=== PATIENT | female | born 1995 | race Caucasian/White ===

== ENCOUNTER 2016-09-09 17:15 | Emergency (ER) | payer OTHER ==
[2016-09-09] MEDS ORDERED: LIDOCAINE VISCOUS 2% SOLN 15ML UDC As Ordered ONE (19:22)
[2016-09-09] MEDS ORDERED: diphenhydrAMINE 25 MG CAP As Ordered ONE (19:23)
--- NOTE | 2016-09-09 19:33 | EDDOCDS ---
Nurse's Notes [facility] Name: Che Christianson Age: 21 yrs Sex: Female : 1995 Arrival Date: 09/09/2016 Time: 17:15 Bed Triage 2 Private MD: Chapis Diagnosis: Diseases of tongue-sore(s);Viral infection, unspecified Presentation: 09/09 17:19 Presenting complaint: Patient states: Patient reports that she has a swollen tongue. [facility] Patient reports being seen at urgent care today. Patient reports no diagnosis given, tongue is painful. Presenting complaint: Patient states: Patient reports started three days ago. Patient denies change in meds or lifestyle changes. Patient reports that she presents due to it not going away. Adult Sepsis Screening: The patient does not have new or worsening altered mentation. Patient's respiratory rate is less than 22. Systolic blood pressure is greater than 100. Patient has a qSOFA score of 0- Negative Sepsis Screen. Suicide/Homicide risk assessment- the patient denies having any suicidal and/or homicidal ideations and does not present with any other emotional, behavioral or mental health complaints. Status: Patient is not a elevator service technician or dependent. Transition of care: patient was not received from another setting of care. 17:19 Method Of Arrival: Walkin/Carried/Asstd [facility] 17:19 Acuity: EMELYN Level 4 [facility] Triage Assessment: 17:22 General: Appears in no apparent distress. Pain: Location: mouth Pain currently is 7 out jmb of 10 on a pain scale. Pt Declines HIV testing. Neurological: Level of Consciousness is awake, alert, obeys commands, Oriented to person, place, time, Speech is slurred, Facial symmetry appears normal, Facial symmetry: tongue is midline. EENT: . Respiratory: Airway is patent Respiratory effort is even, unlabored, Respiratory pattern is regular, symmetrical. Derm: Skin is pink, warm & dry. Musculoskeletal: Range of motion intact in all extremities. CONTACT CENTER REPRESENTATIVE: 17:22 LMP 08/22/2016 [facility] Historical: - Allergies: No known drug Allergies; - Home Meds: 1. levothyroxine 50 mcg Oral cap 1 cap once daily - PMHx: Hypothyroidism; - PSHx: Cholecystectomy; - Social history: Smoking status: Patient states was never smoker of tobacco. No barriers to communication noted, The patient speaks fluent Ugandan, Speaks appropriately for age. - Family history: Not pertinent. - : The pt / caregiver states he / she is not on anticoagulants. Home medication list is obtained from the patient. - Exposure Risk Screening:: None identified. Screenin:31 Screening information is obtained from the patient. Fall risk: No risks identified. ms18 Assistance ADL's: requires no assistance with activities of daily living. Abuse/DV Screen: The patient / caregiver reports he/she is: not in a situation that causes fear, pain or injury. Nutritional screening: No deficits noted. Advance Directives: There is no living will. Advance Directives:. home support is adequate. Assessment: 19:31 General: Appears in no apparent distress, comfortable, obese, Behavior is appropriate ms18 for age, cooperative. Pain: Denies pain. Neurological: Level of Consciousness is awake, alert, obeys commands, Oriented to person, place, time. EENT: Reports tongue swelling. Respiratory: Airway is patent Respiratory effort is even, unlabored. Derm: Skin is pink, warm & dry. Vital Signs: 17:17 BP 128 / 62; Pulse 87; Resp 18 S; Temp 98.0(O); Pulse Ox 98% on R/A; Weight 99.79 kg dd6 (R); Height 5 ft. 2 in. (157.48 cm) (R); 19:30 BP 132 / 65 LA Sitting (auto/lg); Pulse 74; Resp 16; Temp 98.8(TE); Pulse Ox 98% on rs6 R/A; Pain 7/10; 17:17 Body Mass Index 40.24 (99.79 kg, 157.48 cm) dd6 Vitals: 17:17 Log In Time: September 09, 2016 at 17:15. dd6 ED Course: 17:17 Patient visited by Fernando Langley PCA. dd6 17:17 Chapis is Private Physician. dd6 17:17 Patient moved to Waiting dd6 17:18 Patient moved to Pre RCE dd6 17:21 Triage Initiated jmb 19:00 Patient moved to Triage 2 mlb1 19:07 Aurelio Cabrera PA is PHCP. mo1 19:07 Elliott Delgado DO is Attending Physician. mo1 19:09 Patient visited by Aurelio Cabrera PA. mo1 19:24 Chapis is Referral Physician. mo1 19:31 Patient visited by Pat Desai PCA. rs6 19:31 No apparent distress. ms18 19:31 The patient / caregiver is instructed regarding the plan of care and ED course. ms18 Accompanied by Family Member, Patient has correct armband on for positive identification. Property sent home with patient. :Personal belongings accompany Pt. 19:31 No IV's were initiated during this patient's visit. No procedures done that require ms18 assistance. Administered Medications: 19:28 Drug: Lidocaine Viscous 15 ml [Lidocaine Viscous 2 % mucosal solution (15 mL)] Route: jmb Mucous Membrane; Site: affected area; 19:28 Drug: diphenhydrAMINE 50 mg [diphenhydramine 25 mg capsule (2 caps)] Route: PO; jmb Order Results: There are currently no results for this order. Outcome: 19:24 Discharge ordered by Provider. mo1 19:31 Discharge Assessment: Patient awake, alert and oriented x 3. No cognitive and/or ms18 functional deficits noted. Patient verbalized understanding of disposition instructions. patient administered narcotics - no. The following High Risk Discharge criteria are identified: None. Discharged to home ambulatory. Condition: good Condition: stable Condition: improved. Discharge instructions given to patient, Instructed on discharge instructions, follow up and referral plans. medication usage, Demonstrated understanding of instructions, medications, Pt was receptive of discharge instructions/ teaching. Prescriptions given X 1. No special radiology studies were completed. 19:32 Patient left the ED. ms18 Signatures: Aurelio Parra RN RN mlb1 Fernando Langley, CHICKEN STUFFER CHICKEN STUFFER dd6 Aurelio Cabrera PA PA mo1 Naren Vaz RN RN Adilia Stubbs RN RN ms18 Pat Desai, CHICKEN STUFFER CHICKEN STUFFER rs6 Corrections: (The following items were deleted from the chart) 17:24 17:19 Acuity: EMELYN Level 3 alexa liu MTDD
--- NOTE | 2016-09-09 19:33 | EDDOCDS ---
Physician Documentation [facility] Name: Che Christianson Age: 21 yrs Sex: Female : 1995 Arrival Date: 09/09/2016 Time: 17:15 Bed Triage 2 Private MD: Chapis Disposition: 09/09/16 19:24 Discharged to Home/Self Care. Impression: Diseases of tongue - sore(s), Viral infection, unspecified. - Condition is Stable. - Discharge Instructions: Hand, Foot, and Mouth Disease, Viral Exanthems, Adult. - Prescriptions for Lidocaine Viscous - take 10 milliliter by BUCCAL route every 8 hours; 200 milliliter. - Medication Reconciliation, Local Pharmacy Hours form. - Follow up: Chapis; When: Call to arrange an appointment; Reason: Recheck today's complaints, Continuance of care. - Problem is new. - Symptoms are unchanged. - Notes: continue with warm salt water rinses, cold/ice to reduce swelling of tongue, benadryl or other antihistamine to help with swelling. Historical: - Allergies: No known drug Allergies; - Home Meds: 1. levothyroxine 50 mcg Oral cap 1 cap once daily - PMHx: Hypothyroidism; - PSHx: Cholecystectomy; - Social history: Smoking status: Patient states was never smoker of tobacco. No barriers to communication noted, The patient speaks fluent Greek, Speaks appropriately for age. - Family history: Not pertinent. - : The pt / caregiver states he / she is not on anticoagulants. Home medication list is obtained from the patient. - Exposure Risk Screening:: None identified. UX RESEARCH ASSOCIATE: 09/09 17:22 LMP 08/22/2016 b Vital Signs: 17:17 BP 128 / 62; Pulse 87; Resp 18 S; Temp 98.0(O); Pulse Ox 98% on R/A; Weight 99.79 kg / dd6 220 lbs (R); Height 5 ft. 2 in. (157.48 cm) (R); 19:30 BP 132 / 65 LA Sitting (auto/lg); Pulse 74; Resp 16; Temp 98.8(TE); Pulse Ox 98% on rs6 R/A; Pain 7/10; 17:17 Body Mass Index 40.24 (99.79 kg, 157.48 cm) dd6 MDM: 19:20 Lidocaine Viscous Liquid 2 % 15 ml Mucous Membrane in affected area once ordered. mo1 19:20 diphenhydrAMINE 50 mg PO once; pt drove to Er, give to go home please ordered. mo1 Administered Medications: 19:28 Drug: Lidocaine Viscous 15 ml [Lidocaine Viscous 2 % mucosal solution (15 mL)] Route: jmb Mucous Membrane; Site: affected area; 19:28 Drug: diphenhydrAMINE 50 mg [diphenhydramine 25 mg capsule (2 caps)] Route: PO; jmb Signatures: Aurelio Cabrera PA PA mo1 Naren VazRN RN jmb Adilia Quispe RN RN ms18 MTDD
--- NOTE | 2016-09-11 20:33 | EDDOCDS ---
Nurse's Notes [facility] Name: Che Christianson Age: 21 yrs Sex: Female : 1995 Arrival Date: 09/09/2016 Time: 17:15 Bed Triage 2 Private MD: Chapis Diagnosis: Diseases of tongue-sore(s);Viral infection, unspecified Presentation: 09/09 17:19 Presenting complaint: Patient states: Patient reports that she has a swollen tongue. [facility] Patient reports being seen at urgent care today. Patient reports no diagnosis given, tongue is painful. Presenting complaint: Patient states: Patient reports started three days ago. Patient denies change in meds or lifestyle changes. Patient reports that she presents due to it not going away. Adult Sepsis Screening: The patient does not have new or worsening altered mentation. Patient's respiratory rate is less than 22. Systolic blood pressure is greater than 100. Patient has a qSOFA score of 0- Negative Sepsis Screen. Suicide/Homicide risk assessment- the patient denies having any suicidal and/or homicidal ideations and does not present with any other emotional, behavioral or mental health complaints. Status: Patient is not a service order dispatcher or dependent. Transition of care: patient was not received from another setting of care. 17:19 Method Of Arrival: Walkin/Carried/Asstd [facility] 17:19 Acuity: EMELYN Level 4 [facility] Triage Assessment: 17:22 General: Appears in no apparent distress. Pain: Location: mouth Pain currently is 7 out jmb of 10 on a pain scale. Pt Declines HIV testing. Neurological: Level of Consciousness is awake, alert, obeys commands, Oriented to person, place, time, Speech is slurred, Facial symmetry appears normal, Facial symmetry: tongue is midline. EENT: . Respiratory: Airway is patent Respiratory effort is even, unlabored, Respiratory pattern is regular, symmetrical. Derm: Skin is pink, warm & dry. Musculoskeletal: Range of motion intact in all extremities. ORDER PICKER: 17:22 LMP 08/22/2016 [facility] Historical: - Allergies: No known drug Allergies; - Home Meds: 1. levothyroxine 50 mcg Oral cap 1 cap once daily - PMHx: Hypothyroidism; - PSHx: Cholecystectomy; - Social history: Smoking status: Patient states was never smoker of tobacco. No barriers to communication noted, The patient speaks fluent Burundian, Speaks appropriately for age. - Family history: Not pertinent. - : The pt / caregiver states he / she is not on anticoagulants. Home medication list is obtained from the patient. - Exposure Risk Screening:: None identified. Screenin:31 Screening information is obtained from the patient. Fall risk: No risks identified. ms18 Assistance ADL's: requires no assistance with activities of daily living. Abuse/DV Screen: The patient / caregiver reports he/she is: not in a situation that causes fear, pain or injury. Nutritional screening: No deficits noted. Advance Directives: There is no living will. Advance Directives:. home support is adequate. Assessment: 19:31 General: Appears in no apparent distress, comfortable, obese, Behavior is appropriate ms18 for age, cooperative. Pain: Denies pain. Neurological: Level of Consciousness is awake, alert, obeys commands, Oriented to person, place, time. EENT: Reports tongue swelling. Respiratory: Airway is patent Respiratory effort is even, unlabored. Derm: Skin is pink, warm & dry. Vital Signs: 17:17 BP 128 / 62; Pulse 87; Resp 18 S; Temp 98.0(O); Pulse Ox 98% on R/A; Weight 99.79 kg dd6 (R); Height 5 ft. 2 in. (157.48 cm) (R); 19:30 BP 132 / 65 LA Sitting (auto/lg); Pulse 74; Resp 16; Temp 98.8(TE); Pulse Ox 98% on rs6 R/A; Pain 7/10; 17:17 Body Mass Index 40.24 (99.79 kg, 157.48 cm) dd6 Vitals: 17:17 Log In Time: September 09, 2016 at 17:15. dd6 ED Course: 17:17 Patient visited by Fernando Langley PCA. dd6 17:17 Chapis is Private Physician. dd6 17:17 Patient moved to Waiting dd6 17:18 Patient moved to Pre RCE dd6 17:21 Triage Initiated jmb 19:00 Patient moved to Triage 2 mlb1 19:07 Aurelio Cabrera PA is PHCP. mo1 19:07 Elliott Delgado DO is Attending Physician. mo1 19:09 Patient visited by Aurelio Cabrera PA. mo1 19:24 Chapis is Referral Physician. mo1 19:31 Patient visited by Pat Desai, CEFERINO. rs6 19:31 No apparent distress. ms18 19:31 The patient / caregiver is instructed regarding the plan of care and ED course. ms18 Accompanied by Family Member, Patient has correct armband on for positive identification. Property sent home with patient. :Personal belongings accompany Pt. 19:31 No IV's were initiated during this patient's visit. No procedures done that require ms18 assistance. 19:40 [facility] Payment Agreement was scanned into [employer] and attached to record. [email or web address] 09/10 08:54 T-Sheet-- Draft Copy was scanned into [employer] and attached to record. [facility] Administered Medications: 09/09 19:28 Drug: Lidocaine Viscous 15 ml [Lidocaine Viscous 2 % mucosal solution (15 mL)] Route: jmb Mucous Membrane; Site: affected area; 19:28 Drug: diphenhydrAMINE 50 mg [diphenhydramine 25 mg capsule (2 caps)] Route: PO; jmb Order Results: There are currently no results for this order. Outcome: 19:24 Discharge ordered by Provider. mo1 19:31 Discharge Assessment: Patient awake, alert and oriented x 3. No cognitive and/or ms18 functional deficits noted. Patient verbalized understanding of disposition instructions. patient administered narcotics - no. The following High Risk Discharge criteria are identified: None. Discharged to home ambulatory. Condition: good Condition: stable Condition: improved. Discharge instructions given to patient, Instructed on discharge instructions, follow up and referral plans. medication usage, Demonstrated understanding of instructions, medications, Pt was receptive of discharge instructions/ teaching. Prescriptions given X 1. No special radiology studies were completed. 19:32 Patient left the ED. ms18 Signatures: Aurelio Parra RN RN mlb1 Fernando Langley, BUSINESS OPERATIONS DIRECTOR BUSINESS OPERATIONS DIRECTOR dd6 Aurelio Cabrera PA PA mo1 Naren Vaz RN RN Adilia Stubbs RN RN ms18 Pat Desai, BUSINESS OPERATIONS DIRECTOR BUSINESS OPERATIONS DIRECTOR rs6 Miguel AMar, Reg Reg ks16 Alejandra Linares [facility] Corrections: (The following items were deleted from the chart) 17:24 17:19 Acuity: EMELYN Level 3 jmb jmb Chart Complete MTDD
--- NOTE | 2016-09-11 20:33 | EDDOCDS ---
Physician Documentation [facility] Name: Che Christianson Age: 21 yrs Sex: Female : 1995 Arrival Date: 09/09/2016 Time: 17:15 Bed Triage 2 Private MD: Chapis Disposition: 09/09/16 19:24 Discharged to Home/Self Care. Impression: Diseases of tongue - sore(s), Viral infection, unspecified. - Condition is Stable. - Discharge Instructions: Hand, Foot, and Mouth Disease, Viral Exanthems, Adult. - Prescriptions for Lidocaine Viscous - take 10 milliliter by BUCCAL route every 8 hours; 200 milliliter. - Medication Reconciliation, Local Pharmacy Hours form. - Follow up: Chapis; When: Call to arrange an appointment; Reason: Recheck today's complaints, Continuance of care. - Problem is new. - Symptoms are unchanged. - Notes: continue with warm salt water rinses, cold/ice to reduce swelling of tongue, benadryl or other antihistamine to help with swelling. Historical: - Allergies: No known drug Allergies; - Home Meds: 1. levothyroxine 50 mcg Oral cap 1 cap once daily - PMHx: Hypothyroidism; - PSHx: Cholecystectomy; - Social history: Smoking status: Patient states was never smoker of tobacco. No barriers to communication noted, The patient speaks fluent Somali, Speaks appropriately for age. - Family history: Not pertinent. - : The pt / caregiver states he / she is not on anticoagulants. Home medication list is obtained from the patient. - Exposure Risk Screening:: None identified. RN TRANSITIONAL: 09/09 17:22 LMP 08/22/2016 b Vital Signs: 17:17 BP 128 / 62; Pulse 87; Resp 18 S; Temp 98.0(O); Pulse Ox 98% on R/A; Weight 99.79 kg / dd6 220 lbs (R); Height 5 ft. 2 in. (157.48 cm) (R); 19:30 BP 132 / 65 LA Sitting (auto/lg); Pulse 74; Resp 16; Temp 98.8(TE); Pulse Ox 98% on rs6 R/A; Pain 7/10; 17:17 Body Mass Index 40.24 (99.79 kg, 157.48 cm) dd6 MDM: 19:20 Lidocaine Viscous Liquid 2 % 15 ml Mucous Membrane in affected area once ordered. mo1 19:20 diphenhydrAMINE 50 mg PO once; pt drove to [place], give to go home please ordered. mo1 19:40 Financial registration complete. [email or web address] 19:40 [facility] Payment Agreement was scanned into [employer] and attached to record. ks09/10 08:54 T-Sheet-- Draft Copy was scanned into [employer] and attached to record. seh Administered Medications: 09/09 19:28 Drug: Lidocaine Viscous 15 ml [Lidocaine Viscous 2 % mucosal solution (15 mL)] Route: jmb Mucous Membrane; Site: affected area; 19:28 Drug: diphenhydrAMINE 50 mg [diphenhydramine 25 mg capsule (2 caps)] Route: PO; jmb Signatures: Aureilo Cabrera PA PA mo1 Naren Vaz RN RN jmb Smith, Mallory, RN RN ms18 Mar Grady, Reg Reg ks16 Alejandra Linares The chart was reviewed and I authenticate all verbal orders and agree with the evaluation and treatment provided.Attachments: 19:40 [facility] Payment Agreement [email or web address] 09/10 08:54 T-Sheet-- Draft Copy [facility] Chart Complete MTDD
--- NOTE | 2016-09-11 20:33 | EDDOCDS ---
Physician Documentation [facility] Name: Che Christianson Age: 21 yrs Sex: Female : 1995 Arrival Date: 09/09/2016 Time: 17:15 Bed Triage 2 Private MD: Chapis Disposition: 09/09/16 19:24 Discharged to Home/Self Care. Impression: Diseases of tongue - sore(s), Viral infection, unspecified. - Condition is Stable. - Discharge Instructions: Hand, Foot, and Mouth Disease, Viral Exanthems, Adult. - Prescriptions for Lidocaine Viscous - take 10 milliliter by BUCCAL route every 8 hours; 200 milliliter. - Medication Reconciliation, Local Pharmacy Hours form. - Follow up: Chapis; When: Call to arrange an appointment; Reason: Recheck today's complaints, Continuance of care. - Problem is new. - Symptoms are unchanged. - Notes: continue with warm salt water rinses, cold/ice to reduce swelling of tongue, benadryl or other antihistamine to help with swelling. Historical: - Allergies: No known drug Allergies; - Home Meds: 1. levothyroxine 50 mcg Oral cap 1 cap once daily - PMHx: Hypothyroidism; - PSHx: Cholecystectomy; - Social history: Smoking status: Patient states was never smoker of tobacco. No barriers to communication noted, The patient speaks fluent Congolese, Speaks appropriately for age. - Family history: Not pertinent. - : The pt / caregiver states he / she is not on anticoagulants. Home medication list is obtained from the patient. - Exposure Risk Screening:: None identified. PATROL SUPERVISOR: 09/09 17:22 LMP 08/22/2016 b Vital Signs: 17:17 BP 128 / 62; Pulse 87; Resp 18 S; Temp 98.0(O); Pulse Ox 98% on R/A; Weight 99.79 kg / dd6 220 lbs (R); Height 5 ft. 2 in. (157.48 cm) (R); 19:30 BP 132 / 65 LA Sitting (auto/lg); Pulse 74; Resp 16; Temp 98.8(TE); Pulse Ox 98% on rs6 R/A; Pain 7/10; 17:17 Body Mass Index 40.24 (99.79 kg, 157.48 cm) dd6 MDM: 19:20 Lidocaine Viscous Liquid 2 % 15 ml Mucous Membrane in affected area once ordered. mo1 19:20 diphenhydrAMINE 50 mg PO once; pt drove to Er, give to go home please ordered. mo1 19:40 Financial registration complete. [email or web address] 19:40 [facility] Payment Agreement was scanned into [employer] and attached to record. ks09/10 08:54 T-Sheet-- Draft Copy was scanned into [employer] and attached to record. seh Administered Medications: 09/09 19:28 Drug: Lidocaine Viscous 15 ml [Lidocaine Viscous 2 % mucosal solution (15 mL)] Route: jmb Mucous Membrane; Site: affected area; 19:28 Drug: diphenhydrAMINE 50 mg [diphenhydramine 25 mg capsule (2 caps)] Route: PO; jmb Signatures: Aurelio Cabrera PA PA mo1 Naren Vaz RN RN jmb Smith, Mallory, RN RN ms18 Mar Grady, Reg Reg ks16 Alejandra Linares The chart was reviewed and I authenticate all verbal orders and agree with the evaluation and treatment provided.Attachments: 19:40 [facility] Payment Agreement [email or web address] 09/10 08:54 T-Sheet-- Draft Copy [facility] Chart Complete MTDD
== END 2016-09-09 19:32 | disposition home or self-care (01) ==
LOC: M ED 17:15
DX: B08.4 Enteroviral vesicular stomatitis with exanthem (principal); B34.9 Viral infection, unspecified; E03.9 Hypothyroidism, unspecified; Z90.49 Acquired absence of other specified parts of digestive tract; Z79.899 Other long term (current) drug therapy

== ENCOUNTER → 2016-10-08 | Outpatient (CLI) | payer OTHER ==
[2016-10-08 19:11] LABS: FREE T4 1.18 NG/DL (0.76-1.46)
== END | disposition home or self-care (01) ==
LOC: M LRY 12:22
PROVIDERS: ATTEND Physician Assistant
DX: E03.8 Other specified hypothyroidism (principal); R73.01 Impaired fasting glucose; E55.9 Vitamin D deficiency, unspecified
CPT/HCPCS: 36415; 82306; 83036; 84439; 84443; G0463

== ENCOUNTER 2017-01-16 23:34 | Emergency (ER) | payer OTHER ==
[~2017-01-16] VITALS: Ht 157.5 cm; Wt 108.9 kg
[2017-01-16] MEDS ORDERED: LEVO25TA5 PO (23:54)
[2017-01-16] MEDS ORDERED: BYDU1INJ SC (23:54)
[2017-01-17 02:54] VITALS: BP 126/68
== END 2017-01-17 02:58 | disposition home or self-care (01) ==
LOC: M ED 01-17 00:58
DX: S10.91XA Abrasion of unspecified part of neck, initial encounter (principal); Y04.8XXA Assault by other bodily force, initial encounter; Y92.129 Unspecified place in nursing home as the place of occurrence of the external cause; Y93.89 Activity, other specified; Y99.0 Civilian activity done for income or pay; Z79.899 Other long term (current) drug therapy

== ENCOUNTER → 2017-04-20 | Outpatient (CLI) | payer OTHER ==
[~2017-04-20] MED LIST: BYDU1INJ SC; LEVO25TA5 PO
--- NOTE | 2017-04-20 19:29 | REP ---
LUMBAR SPINE, FIVE VIEWS: HISTORY: Back pain. There is no acute fracture or subluxation. The L3-4 and L4-5 intervertebral discs are decreased in height consistent with disc degeneration. The facet joints are normal in appearance. IMPRESSION: Degenerative change as described above. Signed by Isael Sun MD 04/20/2017 07:46 P
== END ==
LOC: M WUC 18:28
PROVIDERS: ATTEND Physician Assistant
DX: M51.36 Other intervertebral disc degeneration, lumbar region (principal)

== ENCOUNTER → 2017-09-17 | Outpatient (CLI) | payer OTHER ==
[2017-09-17 17:30] LABS: TOTAL 25(OH) VITAMIN D 14.2 NG/ML (30.0-100.0)
[2017-09-17 17:33] LABS: ALBUMIN 3.9 GM/DL (3.2-5.2); ALBUMIN/GLOBULIN RATIO 1.18 (1.00-1.93); ALKALINE PHOSPHATASE 79 U/L (45-117); ALT/SGPT 26 U/L (12-78); ANION GAP 6 MEQ/L (8-16); AST/SGOT 18 U/L (7-37); BILIRUBIN,TOTAL 0.3 MG/DL (0.2-1.0); BLOOD UREA NITROGEN 12 MG/DL (7-18); CALCIUM LEVEL 8.8 MG/DL (8.5-10.1); CARBON DIOXIDE LEVEL 29 MEQ/L (21-32); CHLORIDE LEVEL 107 MEQ/L (98-107); CREATININE FOR GFR 0.73 MG/DL (0.55-1.02); FREE T4 1.02 NG/DL (0.76-1.46); GLOMERULAR FILTRATION RATE > 60.0 (>60); GLUCOSE, FASTING 93 MG/DL (70-100); SODIUM LEVEL 142 MEQ/L (136-145); TOTAL PROTEIN 7.2 GM/DL (6.4-8.2)
[2017-09-17 18:51] LABS: ESTIMATED AVERAGE GLUCOSE 123 MG/DL (60-110); HEMOGLOBIN A1c 5.9 %
== END ==
LOC: M WUC 14:14
DX: E55.9 Vitamin D deficiency, unspecified (principal); Z13.29 Encounter for screening for other suspected endocrine disorder; R73.01 Impaired fasting glucose
CPT/HCPCS: 84443

== ENCOUNTER → 2017-10-22 | Outpatient (REF) | payer OTHER | LOC: M SFHCLERA 20:21 | DX: J02.9 Acute pharyngitis, unspecified (principal) ==

== ENCOUNTER → 2018-02-18 | Outpatient (REF) | payer OTHER | LOC: M SFHCLERA 16:13 | DX: M54.9 Dorsalgia, unspecified (principal) | CPT/HCPCS: 87086 ==

== ENCOUNTER → 2018-04-22 | Outpatient (REF) | payer OTHER, MEDICAID ==
[2018-04-22 19:28] LABS: ESTIMATED AVERAGE GLUCOSE 128 MG/DL (60-110); HEMOGLOBIN A1c 6.1 %
[2018-04-22 19:44] LABS: ALBUMIN 3.4 GM/DL (3.2-5.2); ALKALINE PHOSPHATASE 83 U/L (45-117); ALT/SGPT 23 U/L (12-78); ANION GAP 11 MEQ/L (8-16); AST/SGOT 11 U/L (7-37); BILIRUBIN,TOTAL 0.2 MG/DL (0.2-1.0); BLOOD UREA NITROGEN 14 MG/DL (7-18); CALCIUM LEVEL 8.6 MG/DL (8.5-10.1); CARBON DIOXIDE LEVEL 22 MEQ/L (21-32); CHLORIDE LEVEL 111 MEQ/L (98-107); CREATININE FOR GFR 0.87 MG/DL (0.55-1.30); GLOMERULAR FILTRATION RATE > 60.0 (>60); GLUCOSE, FASTING 129 MG/DL (70-100); POTASSIUM SERUM 3.8 MEQ/L (3.5-5.1); SODIUM LEVEL 144 MEQ/L (136-145); TOTAL PROTEIN 6.8 GM/DL (6.4-8.2)
== END ==
LOC: M LAB REF 17:29
DX: E03.9 Hypothyroidism, unspecified (principal); R73.01 Impaired fasting glucose

== ENCOUNTER 2018-05-29 13:04 | Inpatient (IN) | payer OTHER, MEDICAID ==
[2018-05-29] MEDS: ESCITALOPRAM OXALATE 10 MG TAB (LEXAPRO) PO (09:00)
[2018-05-29 14:42] LABS: HEMATOCRIT 41.9 % (36.0-47.0); HEMOGLOBIN 13.5 g/dl (12.0-15.5); MEAN CORPUSCULAR HEMOGLOBIN 27.3 pg (27.0-33.0); MEAN CORPUSCULAR HGB CONC 32.2 g/dl (32.0-36.5); MEAN CORPUSCULAR VOLUME 84.6 fl (80.0-96.0); PLATELET COUNT, AUTOMATED 269 10^3/uL (150-450); RED BLOOD COUNT 4.95 10^6/uL (4.00-5.40); RED CELL DISTRIBUTION WIDTH 13.1 % (11.5-14.5); WHITE BLOOD COUNT 9.5 10^3/uL (4.0-10.0)
[2018-05-29 14:56] LABS: CONTROL LINE HCG INT CTR LINE PRESENT; HCG, SERUM QUALITATIVE NEGATIVE (NEGATIVE)
[2018-05-29 15:12] LABS: ACETAMINOPHEN LEVEL < 2.0 UG/ML (10.0-30.0); ALBUMIN 3.8 GM/DL (3.2-5.2); ALBUMIN/GLOBULIN RATIO 1.15 (1.00-1.93); ALKALINE PHOSPHATASE 79 U/L (45-117); ALT/SGPT 24 U/L (12-78); ANION GAP 6 MEQ/L (8-16); AST/SGOT 14 U/L (7-37); BILIRUBIN,DIRECT < 0.1 MG/DL (0.0-0.2); BILIRUBIN,TOTAL 0.2 MG/DL (0.2-1.0); BLOOD UREA NITROGEN 15 MG/DL (7-18); CARBON DIOXIDE LEVEL 27 MEQ/L (21-32); CHLORIDE LEVEL 110 MEQ/L (98-107); CREATININE FOR GFR 0.76 MG/DL (0.55-1.30); ETHYL ALCOHOL (ETHANOL) < 0.003 % (0.000-0.010); GLOMERULAR FILTRATION RATE > 60.0 (>60); GLUCOSE, FASTING 113 MG/DL (70-100); POTASSIUM SERUM 4.3 MEQ/L (3.5-5.1); SALICYLATE LEVEL < 1.7 MG/DL (5.0-30.0); SODIUM LEVEL 143 MEQ/L (136-145); TOTAL PROTEIN 7.1 GM/DL (6.4-8.2)
[2018-05-29 15:37] LABS: AMPHETAMINES LEVEL URINE NEGATIVE (NEGATIVE); BARBITURATES URINE NEGATIVE (NEGATIVE); BENZODIAZEPINES URINE NEGATIVE (NEGATIVE); CANNABINOIDS URINE NEGATIVE (NEGATIVE); COCAINE METABOLITE URINE NEGATIVE (NEGATIVE); METHADONE URINE NEGATIVE (NEGATIVE); OPIATES URINE NEGATIVE (NEGATIVE); PHENCYCLIDINE URINE NEGATIVE (NEGATIVE)
[2018-05-29] MEDS ORDERED: MOM 30ML SUSPENSION UDC PO (16:45)
[2018-05-29] MEDS ORDERED: MAALOX 30 ML SUSP *UDC PO (16:45)
[2018-05-29] MEDS ORDERED: traZODone 50 MG TAB PO (16:45)
[2018-05-29] MEDS: metFORMIN (GLUCOPHAGE) 500 MG TAB PO (20:51)
[2018-05-29] MEDS: ACETAMINOPHEN TAB 650MG DOSE (2X325MG) PO (20:52)
[2018-05-30] MEDS: LEVOTHYROXINE 50MCG TABLET (0.05MG) PO (06:12)
[2018-05-30] MEDS: ESCITALOPRAM OXALATE 10 MG TAB (LEXAPRO) PO (09:11)
[2018-05-30] MEDS: metFORMIN (GLUCOPHAGE) 500 MG TAB PO ×2 (09:11→18:58)
[2018-05-30 09:19] LABS: BEDSIDE GLUCOSE 139 MG/DL (70-105)
[2018-05-30] MEDS ORDERED: PROPRANOLOL 10 MG TAB PO (11:15)
[2018-05-30] MEDS: FLUTICASONE PROP 0.05% NASAL SPRAY 16 GM (FLONASE) NARES (12:13)
[2018-05-30] MEDS: PILL CRUSHER/CUTTER 1 EACH XX (23:03)
[2018-05-31] MEDS: LEVOTHYROXINE 50MCG TABLET (0.05MG) PO (06:03)
[2018-05-31] MEDS: ESCITALOPRAM OXALATE 10 MG TAB (LEXAPRO) PO (08:17)
[2018-05-31] MEDS: INFLUENZA QUADRIVALENT PF VACCINE 0.5ML SYRINGE (90686) IM (08:18)
[2018-05-31] MEDS: FLUTICASONE PROP 0.05% NASAL SPRAY 16 GM (FLONASE) NARES (08:19)
[2018-05-31] MEDS: metFORMIN (GLUCOPHAGE) 500 MG TAB PO (08:19)
[2018-05-31] MEDS: PILL CRUSHER/CUTTER 1 EACH XX (08:19)
== END 2018-05-31 14:15 | disposition home or self-care (01) | DRG 751 ==
LOC: M ED 13:04 → M ED INP 16:31 → M PSY 17:39
DX: F33.2 Major depressive disorder, recurrent severe without psychotic features (principal); F41.1 Generalized anxiety disorder; F41.0 Panic disorder [episodic paroxysmal anxiety]; F60.3 Borderline personality disorder; F42.9 Obsessive-compulsive disorder, unspecified; Z81.8 Family history of other mental and behavioral disorders; Z81.1 Family history of alcohol abuse and dependence; Z81.3 Family history of other psychoactive substance abuse and dependence; Z79.899 Other long term (current) drug therapy; Z88.8 Allergy status to other drugs, medicaments and biological substances; Z91.5 Personal history of self-harm; E03.9 Hypothyroidism, unspecified; E11.9 Type 2 diabetes mellitus without complications; E66.9 Obesity, unspecified; Z68.42 Body mass index [BMI] 45.0-49.9, adult; Z79.84 Long term (current) use of oral hypoglycemic drugs

== ENCOUNTER → 2018-06-18 | Outpatient (REF) | payer OTHER | LOC: M SFHCLERA 16:01 | DX: J00 Acute nasopharyngitis [common cold] (principal) ==

== ENCOUNTER → 2018-08-07 | Outpatient (REF) | payer OTHER ==
[2018-08-07 19:22] LABS: BASO % 0.4 % (0.0-1.0); EOS # 0.2 10^3/uL (0.0-0.50); EOS % 2.1 % (0.0-3.0); HEMATOCRIT 41.2 % (36.0-47.0); HEMOGLOBIN 13.6 g/dl (12.0-15.5); IMMATURE GRANULOCYTE % 0.2 % (0-3.0); LYMPH # 3.6 10^3/uL (1.5-6.5); LYMPH % 32.9 % (24.0-44.0); MEAN CORPUSCULAR HEMOGLOBIN 27.6 pg (27.0-33.0); MEAN CORPUSCULAR VOLUME 83.6 fl (80.0-96.0); MONO # 0.8 10^3/uL (0.0-0.8); NEUTROPHILS # 6.4 10^3/uL (1.8-7.7); NEUTROPHILS % 57.4 % (36.0-66.0); PLATELET COUNT, AUTOMATED 280 10^3/uL (150-450); RED BLOOD COUNT 4.93 10^6/uL (4.00-5.40); RED CELL DISTRIBUTION WIDTH 12.8 % (11.5-14.5); WHITE BLOOD COUNT 11.1 10^3/uL (4.0-10.0)
[2018-08-07 19:41] LABS: ALBUMIN 3.6 GM/DL (3.2-5.2); ALBUMIN/GLOBULIN RATIO 0.95 (1.00-1.93); ALKALINE PHOSPHATASE 85 U/L (45-117); ALT/SGPT 24 U/L (12-78); ANION GAP 8 MEQ/L (8-16); AST/SGOT 16 U/L (7-37); BILIRUBIN,TOTAL 0.2 MG/DL (0.2-1.0); BLOOD UREA NITROGEN 13 MG/DL (7-18); CALCIUM LEVEL 8.5 MG/DL (8.5-10.1); CARBON DIOXIDE LEVEL 27 MEQ/L (21-32); CHLORIDE LEVEL 106 MEQ/L (98-107); CHOLESTEROL LEVEL 228 MG/DL (<200); CHOLESTEROL RISK RATIO 6.333 (<5); CREATININE FOR GFR 0.82 MG/DL (0.55-1.30); GLOMERULAR FILTRATION RATE > 60.0 (>60); GLUCOSE, FASTING 86 MG/DL (70-100); HDL CHOLESTEROL 36 MG/DL (>40); LDL CHOLESTEROL 143 MG/DL (<100); NON-HDL-C 192 MG/DL; SODIUM LEVEL 141 MEQ/L (136-145); TOTAL 25(OH) VITAMIN D 16.9 NG/ML (30.0-100.0); TOTAL PROTEIN 7.4 GM/DL (6.4-8.2); TRIGLYCERIDES LEVEL 243 MG/DL (<150)
[2018-08-07 19:59] LABS: ESTIMATED AVERAGE GLUCOSE 126 MG/DL (60-110)
== END ==
LOC: M LAB REF 18:34
DX: Z13.9 Encounter for screening, unspecified (principal); E03.9 Hypothyroidism, unspecified; F41.8 Other specified anxiety disorders
CPT/HCPCS: 84443

== ENCOUNTER → 2018-09-13 | Outpatient (CLI) | payer OTHER ==
[~2018-09-13] MED LIST changes: +ABIL1TAB11 PO; +ESCI10TA2 PO; +FLUTISP NARES; +METF500T13 PO; +PROP10TAB PO; +SYNT50TA PO; +TRAZO50TA PO
--- NOTE | 2018-09-13 15:18 | REP ---
RIGHT FOOT, FOUR VIEWS: HISTORY: Pain. There is no acute fracture or dislocation. The joint spaces are normal in appearance. IMPRESSION: There is no acute fracture or dislocation. Electronically Signed by Isael Sun MD 09/13/2018 03:21 P
== END ==
LOC: M WUC 14:30
PROVIDERS: ATTEND Physician Assistant
DX: M79.671 Pain in right foot (principal)

== ENCOUNTER 2018-12-25 08:33 | Emergency (ER) | payer OTHER ==
[~2018-12-25] VITALS: Ht 160 cm; Wt 117.9 kg
[2018-12-25 08:33] VITALS: BP 136/74
[~2018-12-25 08:33] MED LIST changes: +PROP10TA55 PO; -PROP10TAB PO
[2018-12-25] MEDS ORDERED: NAPR250T4 PO (08:45)
[2018-12-25] MEDS ORDERED: BUPR15TA PO (08:45)
[2018-12-25] MEDS ORDERED: AUGM875T28 PO (09:03)
== END 2018-12-25 09:15 | disposition home or self-care (01) ==
LOC: M ED 08:33
DX: K13.0 Diseases of lips (principal); Z79.899 Other long term (current) drug therapy; Z88.8 Allergy status to other drugs, medicaments and biological substances